=== PATIENT | male | born 1970 | race Caucasian/White ===

== ENCOUNTER 2020-08-11 08:30 | Outpatient (REF) | payer OTHER, SELFPAY | END 2020-08-11 08:31 | disposition home or self-care (01) | LOC: HO.HMGCLDS 08:30 | PROVIDERS: Visit Provider Internal Medicine | DX: Z20.822 Contact with and (suspected) exposure to COVID-19 (principal) | CPT/HCPCS: 36415; U0003 ==

== ENCOUNTER 2020-08-22 10:59 | Outpatient (REF) | payer OTHER, SELFPAY | END 2020-08-22 11:00 | disposition home or self-care (01) | LOC: HO.HMGCLDS 10:59 | PROVIDERS: Visit Provider Internal Medicine | DX: Z20.822 Contact with and (suspected) exposure to COVID-19 (principal) | CPT/HCPCS: 36415; C9803; U0003 ==

== ENCOUNTER 2020-11-08 13:49 | Emergency (ER) | payer MEDICAID, SELFPAY ==
--- NOTE | ~2020-11-08 | XR_ITS ---
EXAMINATION: XR KNEE, RIGHT CLINICAL INFORMATION: Pain COMPARISON: None TECHNIQUE: Four views of the right knee. FINDINGS: No fracture or dislocation. Small suprapatellar joint effusion. Medial and lateral joint the are well-maintained. No significant degenerative changes. No focal soft tissue swelling of the anterior knee. XR/XR knee RT 3V IMPRESSION: -Small joint effusion. -Otherwise unremarkable knee radiographs.
[2020-11-08 13:53] VITALS: BP 127/63; PULSE 100; RESP 16; TEMP 36.8; O2SAT 98; BMI 22.4
--- NOTE | 2020-11-08 14:10 | ED.EXTPRO ---
HPI - Extremity Problem General Chief complaint: Extremity Problem Stated complaint: R LEG PAIN NO KNOWN INJ Time Seen by Provider: 11/08/20 14:07 Source: patient and family Mode of arrival: ambulatory Limitations: no limitations History of Present Illness HPI Narrative: 49 y/o male with history of chronic knee pain for >1 year presents to the ED with worsening pain for the last 2-3 weeks. He reports no recent injuries. He has no swelling or redness to the joint. He reports numbness on the front of his knee when he touches it, it feels like it is asleep at times. It has been like this for weeks. He has been able to ambulate but it is painful. 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 MD Complaint: joint swelling and joint paint Onset (ago): week(s) (2-3) Pain Consistency: constant Location: right and knee Quality: aching and dull Radiation: proximal and distal Relieving factors: immobilization Exacerbating factors: range of motion, weight bearing, walking and palpation Associated symptoms: denies other symptoms Related Data Previous Rx's Medication Instructions Recorded ibuprofen 600 mg PO Q8H PRN #20 tab 11/08/20 Allergies Allergy/AdvReac Type Severity Reaction Status Date / Time No Known Allergies Allergy Unverified 04/21/20 15:24 [No Known Allergies*] Review of Systems Review of Systems: Constitutional: No Fever, No Chills Cardiovascular: No Chest Pain, No SOB Gastrointestinal: No Nausea, No Vomiting, No Diarrhea, No abdominal Pain Musculoskeletal: + joint pain, No Myalgias Skin: No Skin Lesions, No rash Neuro: No Weakness, + Numbness Heme/Lymph: No Bruising PMFSH Past Medical History Attestation statement: The following information was validated with the patient. Medical History No known health problems Social History Social History Smoking Status: Current every day smoker Smoked in Last 30 Days: Yes Use of substances other than those prescribed or required for medical reasons: No Advance Directives: No Advance Directives Information Provided: No Physical Exam Vital Signs: Vital Signs: Last Vital Signs Temp 98.3 F 11/08/20 13:53 Pulse 100 11/08/20 13:53 Resp 16 11/08/20 13:53 BP 127/63 11/08/20 13:53 Pulse Ox 98 11/08/20 13:53 Body Mass Index 22.4 Appearance: Alert. Oriented X3. No acute distress. HEENT: normal inspection CVS: Normal heart rate and rhythm. Pulses normal. Respiratory: No respiratory distress. Skin: Skin warm and dry. Normal skin color. Normal skin turgor. No rashes. Extremities: right knee with normal inspection, no erythema or warmth. no joint laxity, no palpable effusion, full ROM with pain on full flexion, tenderness to lateral and medial joint lines Neuro: Oriented X 3. No motor deficit. +sensory deficit to anterior right knee, below patella. ambulates with slight limp Course Course Course Narrative: 49 y/o male presenting with acute on chronic non-traumatic right knee pain. Exam is inconsistent with infection or gout. Likely osteoarthritis. Will get XR per patient request. Reevaluation(s) Reevaluation #1: XR showing small joint effusion. Will place in DIANA wrap for comfort, prescribe NSAID and refer to Ortho. Patient agreeable with plan. Stable for d/c. Critical Care Time Critical Care Time Critical Care Time: No Discharge Plan Discharge Clinical Impression: Effusion, right knee Patient Disposition: Home, Self-Care Instructions: Swollen Knee Joint (ED), Knee Pain (ED) Additional Instructions: Your x-ray today showed a small amount of fluid on the knee. No indication for emergent drainage. Recommend rest, ice, elevation and compression with DIANA wrap. You may bear weight as tolerated. Recommend taking the prescribed anti-inflammatory as needed for pain. Follow up with the Orthopedic doctor for further workup and management. Prescriptions: New ibuprofen 600 mg tablet 600 mg PO Q8H PRN (Reason: pain) Qty: 20 RF: 0 Referrals: Don Castrejon MD [Physician] - 2 days (knee effusion, acute on chronic pain) Stand Alone Forms: Work/School Release
== END 2020-11-08 16:03 | disposition home or self-care (01) ==
PROVIDERS: Emergency Provider Emergency Medicine
DX: M25.561 Pain in right knee (principal); M25.461 Effusion, right knee
CPT/HCPCS: 73562; 99283

== ENCOUNTER 2020-11-18 20:51 | Outpatient (REF) | payer MEDICAID, SELFPAY ==
--- NOTE | ~2020-11-18 | XR_ITS ---
EXAMINATION: XR KNEE, RIGHT CLINICAL INFORMATION: Pain COMPARISON: 11/08/2020 TECHNIQUE: Single patellar view submitted of the right knee. FINDINGS: Mild lateral subluxation of the patella might be positional. Articular surfaces are smooth. XR/XR knee RT 2V IMPRESSION: Mild lateral subluxation of the patella.
== END 2020-11-18 20:52 | disposition home or self-care (01) ==
LOC: HO.HOSX 20:51
PROVIDERS: Visit Provider Physician Assistant
DX: M17.11 Unilateral primary osteoarthritis, right knee (principal); M25.561 Pain in right knee
CPT/HCPCS: 73560; 99202

== ENCOUNTER 2021-05-15 08:28 | Outpatient (REF) | payer MEDICAID, SELFPAY ==
--- NOTE | ~2021-05-15 | XR_ITS ---
EXAMINATION: XR FOOT, LEFT CLINICAL INFORMATION: S99.922A - Unspecified injury of left foot COMPARISON: None TECHNIQUE: AP, lateral, and oblique views of the left foot. FINDINGS: There is no visible fracture or dislocation. No destructive process. There is no erosive arthropathy. There is hallux valgus first MTP, approximately 30 degrees. The medial sesamoid is provided. Small posterior calcaneal spur. XR/XR foot LT min 3V IMPRESSION: No visible fracture or dislocation.
== END 2021-05-15 08:29 | disposition home or self-care (01) ==
LOC: HO.HMGCX 08:28
PROVIDERS: Visit Provider Physician Assistant Medical
DX: S99.922A Unspecified injury of left foot, initial encounter (principal)
CPT/HCPCS: 73630

== ENCOUNTER 2021-06-25 22:03 | Emergency (ER) | payer MEDICAID, SELFPAY ==
[2021-06-25 22:05] VITALS: BP 163/94; PULSE 61; RESP 16; TEMP 36.9; O2SAT 96; BMI 24.1
[2021-06-25] MEDS: Ibuprofen 600 MG TABLET PO (22:45)
[2021-06-26 00:22] VITALS: BP 153/87; PULSE 54; RESP 20; O2SAT 96
--- NOTE | 2021-06-26 01:16 | ED_ITS ---
HPI - Back Pain/Injury General Chief Complaint: Back Pain/Injury Stated Complaint: back pain Time Seen by Provider: 06/26/21 01:02 Source: patient and old records reviewed Mode of arrival: ambulatory Limitations: no limitations History of Present Illness HPI Narrative: Patient with sudden onset back pain that started when he bent over this evening. No prior history of significant back injury. No history of MRI. Pain is in his right lower back and radiates into his right posterior buttock and upper leg. No weakness numbness or paresthesias. 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 This involves a lot of bending over lifting. He has been doing this for about a month and a half. Related Data Previous Rx's Medication Instructions Recorded cyclobenzaprine 10 mg tablet 10 mg PO TID #20 tab 06/26/21 ibuprofen 800 mg tablet 800 mg PO TID #30 tab 06/26/21 oxycodone-acetaminophen 5 mg-325 1 tab PO TID PRN #10 tab 06/26/21 mg tablet (Percocet) prednisone 20 mg tablet 40 mg PO DAILY #10 tab 06/26/21 Allergies Allergy/AdvReac Type Severity Reaction Status Date / Time No Known Allergies Allergy Verified 11/18/20 09:05 [No Known Allergies*] Review of Systems Constitutional: Constitutional: Denies fever(s) Cardiovascular: Comments: No chest pain Gastrointestinal: Comments: No abdominal pain Musculoskeletal: Comments: Back pain radiating to right leg is Integumentary/Breasts: Comments: No rash Neurologic: Comments: No weakness numbness or paresthesias. 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 No acute distress Resp: Other: No respiratory distress GI: Other: Soft nontender nondistended. No pulsatile masses Back/Spine/Pelvis: Other: No midline spinous tenderness. Tender right sacroiliac joint without crepitus or deformity. Skin: Other: Warm pink and dry without rash Neuro: Other: Reflexes intact, patellar and Achilles. Sensation is intact. Motor intact. He is able ambulate although with discomfort Course Course Course Narrative: Sacroiliac joint pain with sciatic symptoms Neurologically intact Treated initially with ibuprofen with minimal effect I will add prednisone, Flexeril, oxycodone,. Discharge home with follow-up at [facility] spine is poor. Discharge Plan Discharge Clinical Impression: Sacro-iliac pain Sciatica Qualifiers: Laterality: right Qualified Code(s): M54.31 - Sciatica, right side Patient Disposition: Home, Self-Care Instructions: Sciatica (ED) Prescriptions: New ibuprofen 800 mg tablet 800 mg PO TID Qty: 30 RF: 0 oxycodone-acetaminophen [Percocet] 5-325 mg tablet 1 tab PO TID PRN (Reason: pain) Qty: 10 RF: 0 cyclobenzaprine 10 mg tablet 10 mg PO TID Qty: 20 RF: 0 prednisone 20 mg tablet 40 mg PO DAILY Qty: 10 RF: 0 Referrals: DANIS NG [Physician] - 2 days
[2021-06-26] MEDS: oxyCODONE HCl Immed Release 5 MG TABLET 10 MG PO (01:36)
[2021-06-26] MEDS: Cyclobenzaprine HCl 10 MG TABLET PO (01:36)
[2021-06-26] MEDS: predniSONE 20 MG TABLET 60 MG PO (01:37)
== END 2021-06-26 02:39 | disposition home or self-care (01) ==
PROVIDERS: Emergency Provider Emergency Medicine
DX: M54.31 Sciatica, right side (principal); Z79.899 Other long term (current) drug therapy
CPT/HCPCS: 99283; 99285